=== PATIENT | male | born 2000 | race African-American/Black ===

== ENCOUNTER 2019-03-17 18:37 | Emergency (ER) | payer SELFPAY ==
[~2019-03-17] VITALS: Ht 188 cm; Wt 97.5 kg
[2019-03-17] MEDS ORDERED: LIDOCAINE 1% INJ 20 ML 20 ML VIAL ONE (18:46)
--- NOTE | 2019-03-17 19:09 | ED Upper Extremity ---
General Chief Complaint: Laceration Stated Complaint: RIGHT HAND LACERATION Nursing Triage Note: Patient states he was cleaning fish when his knife slipped and he cut his right thumb. Nursing Sepsis Screen: No Definite Risk History of Present Illness Date Seen by Provider: Mar 17, 2019 Time Seen by Provider: 18:38 Initial Comments 19-year-old male resents after sustaining a laceration to his left hand, cleaning fish. He has not had any impairment of sensation or motor. Had moderate bleeding initially. This has now improved. Denies medical problems. Uncertain when his last tetanus shot was. No other medical history reported. Onset: just prior to arrival Allergies and Home Medications Patient Home Medication List Home Medication List Reviewed: Yes Review of Systems Constitutional: no symptoms reported, see HPI EENTM: see HPI, no symptoms reported Respiratory: no symptoms reported, see HPI Cardiovascular: no symptoms reported, see HPI Gastrointestinal: see HPI Genitourinary: no symptoms reported, see HPI Musculoskeletal: no symptoms reported, see HPI Skin: see HPI Psychiatric/Neurological: No Symptoms Reported, See HPI Past Ezznhmc-Owfcgi-[id number] Hx Past Med/Social Hx: Reviewed Nursing Past Med/Soc Hx Patient Social History Alcohol Use: Occasionally Uses Number of Drinks Today: 4 Alcohol Beverage of Choice: Beer Recreational Drug Use: Yes (last use 03/16/19) Drug of Choice: marijuana 2nd Hand Smoke Exposure: No Recent Foreign Travel: No Contact w/Someone Who Travel: No Recent Infectious Disease Expo: No Recent Hopitalizations: No Physical Abuse: No Sexual Abuse: No Mistreated: No Fear: No Seasonal Allergies Seasonal Allergies: No Past Medical History Surgeries: No Respiratory: No Cardiac: Yes Heart Murmur Neurological: No Genitourinary: No Gastrointestinal: No Musculoskeletal: No Endocrine: No HEENT: No Cancer: No Psychosocial: No Integumentary: No Physical Exam Vital Signs Vital Signs - First Documented 03/17/19 18:48 Temp 99.5 Pulse 99 Resp 16 B/P (MAP) 141/73 (95) Pulse Ox 97 O2 Delivery Room Air Capillary Refill : Less Than 3 Seconds Height, Weight, BMI Height: 6'2.00" Weight: 215lbs. oz. 97.987107qt; BMI Method:Stated General Appearance: WD/WN, no apparent distress HEENT: PERRL/EOMI, normal ENT inspection, TMs normal, pharynx normal Neck: non-tender, full range of motion, supple, normal inspection Cardiovascular: normal peripheral pulses, regular rate, rhythm, no edema, no gallop, no JVD, no murmur Respiratory: chest non-tender, lungs clear, normal breath sounds, no respiratory distress, no accessory muscle use Gastrointestinal: normal bowel sounds, non tender, soft, no organomegaly, no pulsatile mass, abnormal bowel sounds Back: normal inspection, no CVA tenderness, no vertebral tenderness, CVA tenderness (R), CVA tenderness (L) Shoulder: no evidence of injury Elbow/Forearm: no evidence of injury Wrist: Yes no evidence of injury Hand: laceration (2.5 cm laceration into subcu medial aspect of first MCP) Reflexes: 2+ bicep (R), 2+ bicep (L) Neurologic/Tendon: normal sensation, normal motor functions, normal tendon functions, responds to pain, no evidence tendon injury Neurologic/Psychiatric: alert, oriented x 3 Skin: normal color, warm/dry Lymphatic: no adenopathy Procedures/Interventions Wound Location: Upper Extremities (right hand) Wound Length (cm): 2.5 Wound's Depth, Shape: sub Q Wound Explored: no foreign body removed Irrigated w/ Saline (ccs): 250 Betadine Prep?: Yes Anesthesia: 1% Lidocaine Volume Anesthetic (ccs): 3 Suture: Ethlion Suture Size: 4-0 Number of Sutures: 4 Sterile Dressing Applied?: Yes Progress Neurovascular status was intact both preprocedure and postprocedure. Normal range of motion also determined. Progress/Results/Core Measures Results/Orders My Orders Orders - ZAMZAM JENNINGS MD Lidocaine 1% Inj 20 Ml (Xylocaine 1% Inj (03/17/19 18:46) Vital Signs/I&O 03/17/19 18:48 Temp 99.5 Pulse 99 Resp 16 B/P (MAP) 141/73 (95) Pulse Ox 97 O2 Delivery Room Air Blood Pressure Mean: 95 Departure Impression Primary Impression: Laceration of right hand Qualified Codes: S61.411A - Laceration without foreign body of right hand, initial encounter Disposition: 01 HOME, SELF-CARE Condition: Improved Departure-Patient Inst. Decision time for Depature: 19:10 Referrals: NO,LOCAL PHYSICIAN (PCP) Primary Care Physician 7 days, sooner as needed for redness or swelling Patient Instructions: Tetanus Toxoid (Adsorbed), Laceration Repair With Stitches (DC) Add. Discharge Instructions: Keep clean and dry. Watch for signs of infection. He may need an antibiotic at that begins. Follow-up with your primary care doctor for reevaluation. All discharge instructions reviewed with patient and/or family. Voiced understanding. Scripts Cephalexin (Cephalexin) 500 Mg Tablet 500 MG PO QID, #20 TAB 0 Refills Prov: ZAMZAM JENNINGS MD 03/17/19 ZAMZAM JENNINGS MD Mar 17, 2019 19:09
[2019-03-17] MEDS ORDERED: CEPH500T PO (19:11)
[2019-03-17] MEDS ORDERED: TETANUS,DIPTH,PERTUSS P/F (BOOSTRIX) 0.5 ML VIAL IM ONE (19:15)
[2019-03-17] MEDS ORDERED: LIDOCAINE 1% INJ 50 ML (XYLOCAINE) VIAL IJ ONE (19:15)
[2019-03-17 19:25] VITALS: BP 120/65
== END 2019-03-17 19:25 | disposition home or self-care (01) ==
LOC: ER FS 18:41
DX: S61.411A Laceration without foreign body of right hand, initial encounter (principal); F12.10 Cannabis abuse, uncomplicated; W26.0XXA Contact with knife, initial encounter
CPT/HCPCS: 12002; 90715